=== PATIENT | male | born 1960 | race Caucasian/White ===

== ENCOUNTER 2016-07-05 20:13 | Emergency (ER) | payer OTHER ==
[~2016-07-05] VITALS: Ht 175.3 cm; Wt 82.1 kg
[~2016-07-05 20:13] MED LIST: CLARITIN,ALAVAR10 MG PO; CLARITIN10 M3 PO; DOXYCYCLINE HY100 MG PO; DOXYCYCLINE MO100 MG PO; IBUPROFEN400 MG PO; INDERAL40 MG PO; LEVAQUIN500 MG PO; LEVAQUIN750 MG PO; MOTRIN400 MG PO; NIZORAL SHAMPO120 ML TP; PAXIL40 M1 PO; PAXIL40 MG PO; ROBITUSSIN DM118 ML PO; TRICOR145 MG PO; TYLENOL WITH C1 EACH PO; VERAPAMIL ER120 M1; VICODIN,LORT1 TABLET; ZOFRAN ODT4 MG PO; ZYPREXA10 MG PO; ZYPREXA20 MG PO
[2016-07-05 21:19] LABS: HEMATOCRIT 46.3 % (38.0-50.0); MCH 30.6 PG (29.0-34.0); MCHC 34.3 G/DL (30.0-36.0); MEAN PLAT.VOLUME 11.2 uM^3 (9.0-12.4); PLATELET COUNT 247 K/uL (156-360); RBC DIS.WIDTH-CV 12.7 % (11.8-14.6); WHITE BLOOD COUNT 6.4 K/uL (4.1-10.2)
[2016-07-05 21:29] LABS: CHLORIDE 109 mEq/L (99-109); POTASSIUM 3.7 mEq/L (3.7-5.4); SODIUM 141 mEq/L (136-147)
[2016-07-05 21:31] LABS: GLUCOSE 171 mg/dL (70-99)
[2016-07-05 21:32] LABS: ANION GAP 12 MEQ/L (2-14)
[2016-07-05 21:33] LABS: TOTAL BILIRUBIN 0.5 mg/dL (0.0-1.0)
[2016-07-05 21:34] LABS: SERUM ETHYL ALCOHOL < 10 mg/dL
[2016-07-05 21:35] LABS: ALKALINE PHOSPHATASE 50 IU/L (3-129); GFR ESTIMATE (CALCULATED) 52 mL/min/
[2016-07-05 21:36] LABS: UREA NITROGEN (BUN) 23 mg/dL (9-23)
[2016-07-05 23:02] LABS: BILIRUBIN NEGATIVE; BLOOD NEGATIVE; COLOR YELLOW ((YELLOW)); GLUCOSE (STRIP) NEGATIVE; KETONES NEGATIVE; LEUKOCYTES NEGATIVE; NITRITE NEGATIVE; PROTEIN (STRIP) NEGATIVE; SPECIFIC GRAVITY 1.013 (1.000-1.030)
[2016-07-05 23:10] LABS: AMPHETAMINE NEGATIVE (500 ng/mL); BARBITURATES NEGATIVE (200 ng/mL); BENZODIAZEPINES NEGATIVE (150 ng/mL); COCAINE NEGATIVE (150 ng/mL); INTERNAL CONTROLS VALID? YES; METHADONE NEGATIVE (200 ng/mL); METHAMPHETAMINE NEGATIVE (500 ng/mL); OPIATES (MORPHINE) NEGATIVE (100 ng/mL); OXYCODONE NEGATIVE (100 ng/mL); PHENCYCLIDINE NEGATIVE (25 ng/mL); PROPOXYPHENE NEGATIVE (300 ng/mL); THC CANNABINOIDS NEGATIVE (50 ng/mL); TRICYCLIC ANTIDEPRESSANTS NEGATIVE (300 ng/mL)
[2016-07-05 23:13] LABS: ADD MIUA? NO
[2016-07-06 02:50] VITALS: BP 132/90
== END 2016-07-06 02:46 ==
LOC: EME 20:13
PROVIDERS: Emergency Medicine
DX: R45.6 Violent behavior (principal); F63.81 Intermittent explosive disorder; F31.4 Bipolar disorder, current episode depressed, severe, without psychotic features; F79 Unspecified intellectual disabilities; E78.5 Hyperlipidemia, unspecified; Z85.79 Personal history of other malignant neoplasms of lymphoid, hematopoietic and related tissues; H91.93 Unspecified hearing loss, bilateral
CPT/HCPCS: 80053; 81003; 85027; 90837; 99281; 99284; G0480

== ENCOUNTER → 2017-08-05 | Outpatient (CLI) | payer OTHER | END | disposition home or self-care (01) | DX: R13.10 Dysphagia, unspecified (principal); Z87.19 Personal history of other diseases of the digestive system | CPT/HCPCS: 92611 GN; G8996 GN; G8997 GN; G8998 GN ==